=== PATIENT | female | born 1990 | race Caucasian/White ===

== ENCOUNTER 2016-10-23 23:48 | Emergency (ER) | payer MEDICAID ==
[2016-10-24] MEDS ORDERED: ONDANSETRON 4 MG TAB.RAPDIS PO ONE (00:09)
--- NOTE | 2016-10-24 00:13 | ER Document Report ---
ED Medical Screen (RME) - General Chief Complaint: Vomiting Stated Complaint: VOMITING Notes: 25 year old female that comes to the ED for chief complaint of vomiting, states she has done so since , vomited +10 times today. Has had a cholecystectomy. LMP 2 weeks ago. Denies fever, diarrhea. PMH anxiety. Physical Exam - Vital signs Vitals: Pulse BP Pulse Ox 93 148/115 H 99 10/23/16 23:58 10/23/16 23:58 10/23/16 23:58 - Abdominal Tenderness: Tender - Generalized abdominal tenderness everywhere Course - Re-evaluation Re-evalutation: Patient localizes loudly and appears to be fake vomiting, however she will be given nausea medication, will be performed. Abdominal exam is very nonspecific , complains of pain everywhere, no guarding or peritoneal signs. Patient is not tachycardic. - Vital Signs Vital signs: Temp Pulse Resp BP Pulse Ox 93 148/115 H 99 10/23/16 23:58 10/23/16 23:58 10/23/16 23:58
[2016-10-24 01:37] LABS: HEMATOCRIT 42.3 % (36.0-47.0); HEMOGLOBIN 14.5 g/dL (12.0-15.5); HGB HCT DIFFERENCE 1.2; MEAN CORPUSCULAR HEMOGLOBIN 30.4 pg (27.0-33.4); MEAN CORPUSCULAR HGB CONC 34.3 g/dL (32.0-36.0); MEAN CORPUSCULAR VOLUME 89 fl (80-97); RED BLOOD COUNT 4.77 10^6/uL (3.72-5.28); RED CELL DISTRIBUTION WIDTH 12.4 % (11.5-14.0); WHITE BLOOD COUNT 22.2 10^3/uL (4.0-10.5)
[2016-10-24 01:55] LABS: ALANINE AMINOTRANSFERASE 36 U/L (9-52); ALKALINE PHOSPHATASE 81 U/L (38-126); ANION GAP 18 (5-19); ASPARTATE AMINO TRANSFERASE 41 U/L (14-36); BILIRUBIN,TOTAL 2.1 mg/dL (0.2-1.3); BLOOD UREA NITROGEN 18 mg/dL (7-20); CALCIUM 10.3 mg/dL (8.4-10.2); CARBON DIOXIDE 20 mmol/L (22-30); CHLORIDE 102 mmol/L (98-107); CREATININE RESULT 0.68 mg/dL (0.52-1.25); GLUCOSE 207 mg/dL (75-110); POTASSIUM 3.1 mmol/L (3.6-5.0); SODIUM 140.3 mmol/L (137-145)
[2016-10-24 02:03] LABS: BAND NEUTROPHILS % (MANUAL) 2 % (3-5); BASOPHILS % (MANUAL) 0 % (0-2); EOSINOPHILS % (MANUAL) 0 % (0-6); LYMPHOCYTES % (MANUAL) 8 % (13-45); TOTAL CELLS COUNTED 100
[2016-10-24 02:06] LABS: RBC MORPHOLOGY COMMENT NORMO-CYTIC/CHROMIC
[2016-10-24] MEDS ORDERED: PROMETHAZINE HCL INJ 25 MG/1 ML VIAL IM ONE (02:14)
[2016-10-24] MEDS ORDERED: DIPHENHYDRAMINE HCL 50 MG/ML VIAL IV ONE (02:14)
--- NOTE | 2016-10-24 02:22 | ER Document Report ---
ED General - General Chief Complaint: Vomiting Stated Complaint: VOMITING Notes: Patient is a 25-year-old female who recently moved to the area who presents with complaint of sensation of having to vomit since . She is actively in the room trying to force herself to vomit but nothing is coming out. When I tell her to stop she is actually able to stop doing this and talk to me. Initially she says that she's never had a history of this in the past. Patient answers asking for anxiety medication. I ask her if in the past if she's had recurrent nausea and vomiting with her previous panic attacks. She then says yes. Says she now confirms that she's had this problem in the past with anxiety and panic attacks. She complains of pain mainly in the epigastric region. She denies any fevers. She had a normal bowel movement today when she came to the ER. She's had no blood in her stool. No blood in her emesis. She had a previous history of cholecystectomy. Last initial period was 2 weeks ago. She's not been sexually active since her menstrual period. TRAVEL OUTSIDE OF THE [place] IN LAST 30 DAYS: No - Related Data Allergies/Adverse Reactions: codeine Allergy (Verified 10/24/16 00:13) Past Medical History - Social History Smoking Status: Never Smoker Chew tobacco use (# tins/day): No Frequency of alcohol use: Rare Drug Abuse: None Family History: Reviewed & Not Pertinent Patient has suicidal ideation: No Patient has homicidal ideation: No Renal/ Medical History: Denies: Hx Peritoneal Dialysis Review of Systems - Review of Systems Notes: My Normal Review Basic REVIEW OF SYSTEMS: CONSTITUTIONAL : Denies fever, chills, or sweats. Denies recent illness. EENT: Denies eye, ear, throat, or mouth pain or symptoms. Denies nasal or sinus congestion. CARDIOVASCULAR: Denies chest pain. RESPIRATORY: Denies cough, cold, or chest congestion. Denies shortness of breath, difficulty breathing, or wheezing. GASTROINTESTINAL: Epigastric abdominal pain. Recurrent vomiting Denies constipation. Last BM: GENITOURINARY: Denies difficulty urinating, painful urination, burning, frequency, or blood in urine. FEMALE GENITOURINARY: Denies vaginal bleeding, abnormal or irregular periods. LMP: 2 weeks ago MUSCULOSKELETAL: Denies neck or back pain or joint pain or swelling. SKIN: Denies rash or skin lesions. NEUROLOGICAL: Denies altered mental status or loss of consciousness. Denies headache. Denies weakness or paralysis or loss of use of either side. Denies problems with gait or speech. Denies sensory or motor loss. PSYCHIATRIC: Severe anxiety ALL OTHER SYSTEMS REVIEWED AND NEGATIVE. Physical Exam - Vital signs Vitals: Pulse BP Pulse Ox 93 148/115 H 99 10/23/16 23:58 10/23/16 23:58 10/23/16 23:58 - Notes Notes: General Appearance: Patient is actively dry heaving. She is making loud noises try to force herself to vomit but nothing is coming out. Patient is anxious appearing. Vitals: reviewed, See vital signs table. Head: no swelling or tenderness to the head Eyes: PERRL, EOMI, Conjuctiva clear Mouth: No decreasd moisture Throat: No tonsillar inflammation, No airway obstruction, No lymphadenopathy Neck: Supple, no neck tenderness, Lungs: No wheezing, No rales, No rhonci, No accessory muscle use, good air exchange bilaterally. Heart: Normal rate, Regular rythm, No murmur, no rub Abdomen: Normal BS, soft, No rigidity, moderate epigastric abdominal tenderness to palpation, No guarding, no rebound, no abdominal masses, no organomegaly Extremities: strength 5/5 in all extremities, good pulses in all extremities, no swelling or tenderness in the extremities, no edema. Skin: warm, dry, appropriate color, no rash Neuro: speech clear, oriented x 3, normal affect, responds appropriately to questions. Course - Re-evaluation Re-evalutation: 10/24/16 04:38 I went to reevaluate the patient. She standing at the bedside looks well; however, she told me that she just vomited. She says she vomited to the back. Other than the back and it was just a very small amount of saliva that she has been to the back. This no emesis in the bag. Patient says that she does not feel any better. She still feels very anxious and uptight. I asked her if she was ever on anxiety medications. Patient says she refuses to take anxiety medications chronically. She says that when she gets these episodes she discussed the ER and eventually they give her anxiety medications to calm her down and nausea medicine until she feels somewhat better. I will give the patient does have Ativan as well as a dose of Haldol. Hopefully this will make her feel better. She's not septic or toxic appearing. Clinically she actually looks well. She's to me she looks much improved and much more calm as compared to when I first evaluated her. - Vital Signs Vital signs: Temp Pulse Resp BP Pulse Ox 93 148/115 H 99 10/23/16 23:58 10/23/16 23:58 10/23/16 23:58 - Laboratory Result Diagrams: 10/24/16 01:20 10/24/16 01:20 Laboratory results interpreted by me: 10/24/16 10/24/16 01:20 01:20 WBC 22.2 H Seg Neuts % (Manual) 83 H Band Neutrophils % 2 L Lymphocytes % (Manual) 8 L Abs Neuts (Manual) 18.9 H Potassium 3.1 L Carbon Dioxide 20 L Glucose 207 H Calcium 10.3 H Total Bilirubin 2.1 H AST 41 H - Transfer of Care Notes: 10/24/16 06:17 Patient's vomiting is much improved. She feels improved. She no longer feels is anxious. I did review her history with one more time. Did talk about drug use. She now tells me that she did used to use marijuana to control anxiety. She stopped using marijuana 1 week ago is gradual become more and more anxious and start having vomiting today. Think this is most likely what has triggered her symptoms today. I will discharge her home with Zofran and Phenergan. We' ll also give her some Vistaril. We'll also place her on a few tablets of potassium over the next few days to help have given her a list of local primary care doctors since she is new to the area. I encourage her to return to ER if she has worsening recurrence of her symptoms or feels unwell. Patient did have leukocytosis; however, clinically she looks very well, her abdomen is nontender concerning on exam. I think her leukocytosis most likely related to her her having hyperventilation and anxiety and her recurrent retching when she had first arrived to the ER. I suspect the leukocytosis is due to demargination. I do not think she is a CT scan at this time being to clinic she looks very well and is not having significant pain. Dictation of this chart was performed using voice recognition software; therefore, there may be some unintended grammatical errors. Discharge - Discharge Clinical Impression: Anxiety, Hypokalemia Vomiting Qualifiers: Vomiting type: unspecified Vomiting Intractability: unspecified Nausea presence : with nausea Qualified Code(s): R11.2 - Nausea with vomiting, unspecified Leukocytosis Qualifiers: Leukocytosis type: unspecified Qualified Code(s): D72.829 - Elevated white blood cell count, unspecified Condition: Good Disposition: HOME, SELF-CARE Instructions: Family Physicians / Practices Additional Instructions: Please take the medications as prescribed. Please return to ER if he started having intractable vomiting or feel worse again. I've added a list of local primary care physicians. Please follow-up with primary care physician for continued management of her history of anxiety and recurrent vomiting. Do not drive after taking the Phenergan or Vistaril as these medications can make you very sleepy. Prescriptions: Hydroxyzine Pamoate [Vistaril 25 mg Capsule] 25 mg PO BID PRN #30 capsule PRN Reason: Anxiety Ondansetron [Zofran Odt 4 mg Tablet] 1 tab PO Q4H PRN #15 tab.rapdis PRN Reason: For Nausea/Vomiting Potassium Chloride [K-Tab] 10 meq PO BID #10 tablet.sa Promethazine HCl [Phenergan 25 mg Tablet] 1 - 2 tab PO Q6H PRN #15 tablet PRN Reason:
[2016-10-24] MEDS ORDERED: PROMETHAZINE HCL INJ 25 MG/1 ML VIAL ONE (02:41)
[2016-10-24] MEDS: MAGNESIUM SULFATE/D5W 100 ML IV SCH ×2 (03:48→06:12)
[2016-10-24] MEDS: NORMAL SALINE 1000 ML 1,000 ML IV PRN ×2 (03:48→06:13)
[2016-10-24] MEDS ORDERED: LORAZEPAM INJ 2 MG/1 ML VIAL IV ONE (04:38)
[2016-10-24] MEDS ORDERED: HALOPERIDOL LACTATE INJ 5 MG/1 ML VIAL IM ONE (04:38)
[2016-10-24 08:01] VITALS: BP 105/60
== END 2016-10-24 07:30 | disposition home or self-care (01) ==
LOC: ER 23:48
DX: F41.9 Anxiety disorder, unspecified (principal); E87.6 Hypokalemia; R11.2 Nausea with vomiting, unspecified; R10.13 Epigastric pain; Z79.899 Other long term (current) drug therapy
CPT/HCPCS: 99283; 96372; 96375; 96365; 96366; 36415; 82962; 83735; 84703; 85025; 80053; 74022; J1200; S0119; J1630; J2060; J3475; J2550; J7030

== ENCOUNTER → 2016-12-29 | Outpatient (CLI) | payer OTHER ==
[2016-12-29 15:59] LABS: ABSOLUTE EOSINOPHILS # (AUTO) 0.1 10^3/uL (0.0-0.6); ABSOLUTE LYMPHOCYTES (AUTO) 2.1 10^3/uL (0.5-4.7); ABSOLUTE MONOCYTES (AUTO) 0.8 10^3/uL (0.1-1.4); ABSOLUTE NEUT (AUTO) 11.2 10^3/uL (1.7-8.2); BASOPHILS % (AUTO) 0.2 % (0-2); EOSINOPHILS % (AUTO) 0.5 % (0-6); HEMATOCRIT 40.6 % (36.0-47.0); HEMOGLOBIN 13.5 g/dL (12.0-15.5); HGB HCT DIFFERENCE -0.1; LYMPHOCYTES % (AUTO) 14.9 % (13-45); MEAN CORPUSCULAR HEMOGLOBIN 30.7 pg (27.0-33.4); MEAN CORPUSCULAR HGB CONC 33.2 g/dL (32.0-36.0); MEAN CORPUSCULAR VOLUME 93 fl (80-97); MONOCYTES % (AUTO) 5.9 % (3-13); RED BLOOD COUNT 4.39 10^6/uL (3.72-5.28); RED CELL DISTRIBUTION WIDTH 12.8 % (11.5-14.0); SEGMENTED NEUTROPHILS % (AUTO) 78.5 % (42-78); WHITE BLOOD COUNT 14.2 10^3/uL (4.0-10.5)
[2016-12-30 16:26] LABS: CALCIUM 9.6 mg/dL (8.4-10.2); GLUCOSE 82 mg/dL (75-110)
[2016-12-30 16:27] LABS: ALANINE AMINOTRANSFERASE 21 U/L (9-52); ALBUMIN 4.3 g/dL (3.5-5.0); ALKALINE PHOSPHATASE 82 U/L (38-126); ANION GAP 14 (5-19); ASPARTATE AMINO TRANSFERASE 19 U/L (14-36); BILIRUBIN,DIRECT 0.4 mg/dL (0.0-0.4); BILIRUBIN,TOTAL 1.3 mg/dL (0.2-1.3); BLOOD UREA NITROGEN 13 mg/dL (7-20); CARBON DIOXIDE 23 mmol/L (22-30); CHLORIDE 104 mmol/L (98-107); CHOLESTEROL 163.75 mg/dL (0-200); POTASSIUM 4.1 mmol/L (3.6-5.0); SODIUM 140.9 mmol/L (137-145); TOTAL PROTEIN 7.1 g/dL (6.3-8.2); TRIGLYCERIDES 98 mg/dL (<150); VLDL CHOLESTEROL 19.6 mg/dL (10-31)
[2016-12-30 16:28] LABS: DIRECT LDL 66 mg/dL (<100); Direct HDL 83 mg/dL (>40)
== END ==
LOC: CCC 10:53
DX: E03.9 Hypothyroidism, unspecified (principal)
CPT/HCPCS: 36415; 80053; 80061; 83036; 84443; 85025; 86376

== ENCOUNTER 2017-04-26 20:51 | Emergency (ER) | payer SELFPAY ==
[2017-04-26 21:07] VITALS: BP 124/76
[2017-04-26] MEDS ORDERED: PREDNISONE 20 MG TABLET PO ONE (21:07)
[2017-04-26] MEDS ORDERED: IPRATROPIUM/ALBUTEROL 0.5-2.5 MG/3 ML AMPUL NEB ONE (21:07)
[2017-04-26] MEDS ORDERED: ALBUTEROL SULFATE 0.083% NEB 2.5 MG/3 ML AMPUL NEB SCH (21:22)
[2017-04-26] MEDS ORDERED: ALBUTEROL SULFATE HFA (90 MCG/PUFF) 200 PUFF/8.5 GM MDI IH ONE (21:44)
--- NOTE | 2017-04-26 21:44 | ER Document Report ---
ED Respiratory Problem - General Chief Complaint: Asthma Exacerbation Stated Complaint: BREATHING DIFFICULTY Time Seen by Provider: 04/26/17 21:24 Mode of Arrival: Ambulatory Information source: Patient Notes: Patient is a 26-year-old female who presents to the ER today for asthma attack with wheezing and shortness of breath and panic attack with chest tightness that began just prior to arrival. Patient has a history of asthma and anxiety, moved here several months ago and does not have an albuterol inhaler at home. She does have Vistaril at home but does not take it because she "does not like to take medicines." She denies any productive cough, recent illness, fever, chills. TRAVEL OUTSIDE OF THE [place] IN LAST 30 DAYS: No - Related Data Allergies/Adverse Reactions: acetaminophen [From Tylenol] Allergy (Verified 04/26/17 21:22) codeine Allergy (Verified 10/24/16 00:13) Past Medical History - General Information source: Patient - Social History Smoking Status: Current Every Day Smoker Chew tobacco use (# tins/day): No Frequency of alcohol use: None Drug Abuse: None Family History: Reviewed & Not Pertinent Patient has suicidal ideation: No Patient has homicidal ideation: No - Past Medical History Cardiac Medical History: Reports: Hx Atrial Fibrillation Renal/ Medical History: Denies: Hx Peritoneal Dialysis Past Surgical History: Reports: Hx Cholecystectomy - Immunizations Hx Diphtheria, Pertussis, Tetanus Vaccination: Yes Review of Systems - Review of Systems Constitutional: No symptoms reported EENT: No symptoms reported Cardiovascular: No symptoms reported Respiratory: See HPI Gastrointestinal: No symptoms reported Genitourinary: No symptoms reported Female Genitourinary: No symptoms reported Musculoskeletal: No symptoms reported Skin: No symptoms reported Hematologic/Lymphatic: No symptoms reported Neurological/Psychological: See HPI Physical Exam - Vital signs Vitals: Temp Pulse Resp BP Pulse Ox 97.6 F 88 16 124/76 100 04/26/17 21:06 04/26/17 21:06 04/26/17 21:06 04/26/17 21:06 04/26/17 21:06 - Notes Notes: PHYSICAL EXAMINATION: GENERAL: Anxious appearing, but in no acute distress. HEAD: Atraumatic, normocephalic. EYES: Pupils equal round and reactive to light, extraocular movements intact, sclera anicteric, conjunctiva are normal. ENT: ear canals without erythema or foreign body, TMs pearly kruger with good bony landmarks, nares patent, oropharynx clear without exudates. Moist mucous membranes. Airway patent NECK: Normal range of motion, supple without lymphadenopathy LUNGS: Minimal expiratory wheezes, no rales or rhonchi. HEART: Regular rate and rhythm without murmursis EXTREMITIES: Normal range of motion, no pitting edema. No cyanosis. NEUROLOGICAL: Cranial nerves grossly intact. Normal sensory/motor exams. PSYCH: Normal mood, normal affect. SKIN: Warm, Dry, normal turgor, no rashes or lesions noted Course - Re-evaluation Re-evalutation: 04/26/17 21:43 Patient feels 100% better after breathing treatment and wants to go home. She has Vistaril at home but I will give her a dose here as she still states that she is anxious. I will also give her an albuterol inhaler to go home with from the emergency department as well. - Vital Signs Vital signs: Temp Pulse Resp BP Pulse Ox 97.6 F 88 16 124/76 100 04/26/17 21:06 04/26/17 21:06 04/26/17 21:06 04/26/17 21:06 04/26/17 21:06 Discharge - Discharge Clinical Impression: Asthma attack, Anxiety Condition: Stable Disposition: HOME, SELF-CARE Additional Instructions: Please use your inhaler every 4 hours as needed for shortness of breath and/or wheezing. Return immediately for any new or worsening symptoms. Follow up with primary care provider, call tomorrow to make followup appointment. Prescriptions: Albuterol Sulfate [Proair HFA Inhalation Aerosol 8.5 gm MDI] 2 puff IH Q4H PRN # 1 mdi PRN Reason: Forms: Return to Work
[2017-04-26] MEDS ORDERED: HYDROXYZINE PAMOATE 25 MG CAPSULE PO ONE (22:01)
== END 2017-04-26 22:03 | disposition home or self-care (01) ==
LOC: ER 20:51
DX: J45.901 Unspecified asthma with (acute) exacerbation (principal); F41.9 Anxiety disorder, unspecified; R06.02 Shortness of breath; F17.200 Nicotine dependence, unspecified, uncomplicated
CPT/HCPCS: 94640; 99284; J7512; J3490; J7620